=== PATIENT | male | born 1940 | race Caucasian/White ===

== ENCOUNTER → 2022-02-15 15:23 | Outpatient (BNVA) | payer MEDICARE, OTHER, SELFPAY | PROVIDERS: Family Provider Family Medicine; Visit Provider Family Medicine | DX: N39.0 Urinary tract infection, site not specified (principal) | CPT/HCPCS: 81000; 81002; 87077; 87086; 87184 ==

== ENCOUNTER → 2023-06-12 13:49 | Outpatient (BNVA) | payer MEDICARE, OTHER, SELFPAY | PROVIDERS: Family Provider Family Medicine; PCP Family Medicine; Visit Provider Family Medicine | DX: R30.0 Dysuria (principal); R31.9 Hematuria, unspecified | CPT/HCPCS: 81000; 87077; 87086; 87184 ==

== ENCOUNTER → 2023-07-27 14:44 | Outpatient (BNVA) | payer MEDICARE, OTHER, SELFPAY | PROVIDERS: Family Provider Family Medicine; PCP Family Medicine; Referring Provider Family Medicine; Visit Provider Surgery | DX: Z12.11 Encounter for screening for malignant neoplasm of colon (principal) | CPT/HCPCS: 99024; 99203 ==

== ENCOUNTER 2023-10-26 06:09 | Day surgery (SDC) | payer MEDICARE, OTHER, SELFPAY ==
[2023-10-26 06:17] VITALS: BMI 23.1
[2023-10-26] MEDS: sodium chloride 0.9% 1,000 ML 30 ML IV (06:25)
[2023-10-26 06:29] VITALS: BP 136/78; PULSE 67; RESP 18; TEMP 36.3; O2SAT 97
--- NOTE | 2023-10-26 06:31 | W.PM.OPSFHP ---
Same Day Surgery H&P Indication for Procedure/HPI DATE OF PROCEDURE: October 26, 2023 CHIEF COMPLAINT/INDICATIONFOR SURGICAL PROCEDURE: positive cologuard PREOP DIAGNOSIS: positive cologuard PLANNED PROCEDURE: Operation Date: 10/26/23 07:00 [place] Procedures [place] [address] colon G0121 screen colon A risk Z12.11(Not Applicable) - Mann Harrington MD Medications/Allergies* Home Medications Medication Instructions Recorded Confirmed Type multivitamin with minerals 1 tab PO DAILY 10/24/23 10/24/23 History Allergies/Adverse Reactions Allergy/AdvReac Type Severity Reaction Status Date / Time No Known Allergies Allergy Verified 07/27/23 15:06 Current Medications: Generic Name Dose Route Start Last Admin Trade Name Freq PRN Reason Stop Dose Admin Sodium Chloride 1,000 mls @ 30 mls/hr 10/26/23 06:15 10/26/23 06:25 Sodium Chloride 0.9% IV 10/27/23 06:14 30 mls/hr .Q24H DERIC Administration Pertinent History/Comorbid Conditions* Medical History (Updated 08/21/23 @ 11:54 by Lincoln Vaca MD) Hypertension Social History Smoking and tobacco/nicotine status: never used tobacco/nicotine Alcohol intake: current Alcohol intake frequency: few times a week Pertinent Exam Findings alert, oriented x 3 and clear to auscultation bilaterally Recommendations Surgery/Procedure today Coding Level of Care Code Acute Code for Chg Fwd
--- NOTE | 2023-10-26 07:06 | ANES.PREANE2 ---
Pre-Anesthetic Assessment Height/Weight: Height 1.83 m Weight 77.564 kg Temp Pulse Resp BP Pulse Ox O2 Del Method 97.4 F L 67 18 136/78 97 Room Air 10/26/23 06:29 10/26/23 06:29 10/26/23 06:29 10/26/23 06:29 10/26/23 06:29 10/26/23 06:29 Preop Diagnosis: positive cologuard Operation Date: 10/26/23 07:00 Proposed Procedures p [id number] colon G0121 screen colon A risk Z12.11(Not Applicable) - Mann Harrington MD Was Beta Rebekah taken within 24 hours: N/A Was Clonidine taken within 24 hours: N/A Last intake: Intake Last Liquid Date 10/25/23 Last Liquid Time 20:00 Last Solid Date 10/24/23 Social No alcohol and No tobacco Exam alert, oriented x 3, clear to auscultation bilaterally and regular rate & rhythm Airway Submandibular: within normal limits Cervical ROM: within normal limits Mallampati: Class II Dentition: full History/ROS No significant history except as noted and No significant complaints Pulmonary None reported CV/HEM None reported Prostate CA Hepatic None reported GI None reported Metabolic None reported Musc/skel Osteoarthritis/DJD Neuropsych None reported Anesthetic Plan ASA status: 2 Anesthesia: Anesthesia Evaluation and MAC Risk of > 500 ml blood loss (7ml/kg in children): No Medications/Allergies Home Medications Medication Instructions Recorded Confirmed Last Taken Type lisinopril 20 0.5 tab PO DAILY #45 tabs 06/20/23 10/24/23 10/25/23 Rx mg-hydrochlorothiazide 12.5 mg tablet multivitamin with minerals 1 tab PO DAILY 10/24/23 10/24/23 10/25/23 History Allergies Allergy/AdvReac Type Severity Reaction Status Date / Time No Known Allergies Allergy Verified 07/27/23 15:06 Current Medications Generic Name Dose Route Start Last Admin Trade Name Freq PRN Reason Stop Dose Admin Sodium Chloride 1,000 mls @ 30 mls/hr 10/26/23 06:15 10/26/23 06:25 Sodium Chloride 0.9% IV 10/27/23 06:14 30 mls/hr .Q24H DERIC Administration PFSH Anesthesia Medical History (Updated 08/21/23 @ 11:54 by Lincoln Vaca MD) Hypertension Social History (Updated 07/27/23 @ 15:08 by MIRIAM Banks) Smoking and tobacco/nicotine status: never used tobacco/nicotine Alcohol intake: current Alcohol intake frequency: few times a week Data Anesthesia Cardiac Studies: No Data to Display
[2023-10-26 07:46] VITALS: BP 99/66; PULSE 57; RESP 18; TEMP 36.1; O2SAT 98
[2023-10-26 08:05] VITALS: BP 104/60; PULSE 59; RESP 18; O2SAT 96
[2023-10-26 08:11] VITALS: BP 122/79; PULSE 56; RESP 16; O2SAT 98
--- NOTE | 2023-10-26 14:11 | ANE.PACU2 ---
Inpatient post-anesthesia follow up: Vital signs: Temperature 97.0 F Pulse Rate 56 Respiratory Rate 16 Blood Pressure 122/79 Pulse Oximetry 98 Oxygen Delivery Me thod Room Air Oxygen Flow Rate 3 Fraction of Inspir ed Oxygen Hydration adequate: Yes Nausea and vomiting: No Pain level: 1 Mental status: Baseline
== END 2023-10-26 08:30 | disposition home or self-care (01) ==
PROVIDERS: Family Provider Family Medicine; PCP Family Medicine; Visit Provider Surgery
PROC: 0DJD8ZZ Inspection of Lower Intestinal Tract, Via Natural or Artificial Opening Endoscopic (ICD-10-PCS; CPT 45378; principal; 2023-10-26 07:00)
DX: Z12.11 Encounter for screening for malignant neoplasm of colon (principal); D12.5 Benign neoplasm of sigmoid colon; D12.8 Benign neoplasm of rectum; I10 Essential (primary) hypertension; Z85.46 Personal history of malignant neoplasm of prostate
CPT/HCPCS: 45380; 88305; J2704; J7030

== ENCOUNTER → 2023-11-08 13:13 | Outpatient (BNVA) | payer MEDICARE, SELFPAY | PROVIDERS: Family Provider Family Medicine; PCP Family Medicine; Visit Provider Surgery | DX: Z09 Encounter for follow-up examination after completed treatment for conditions other than malignant neoplasm (principal); K63.5 Polyp of colon | CPT/HCPCS: 99213 ==